=== PATIENT | male | born 1985 | race Caucasian/White ===

== ENCOUNTER 2018-12-20 08:51 | Emergency (ER) | payer OTHER ==
[~2018-12-20] VITALS: Ht 195.6 cm; Wt 122.0 kg
[2018-12-20] MEDS ORDERED: [UNRECOGNIZED DRUG - REMARK] (09:04)
--- NOTE | 2018-12-20 10:10 | REP ---
SCROTAL ULTRASOUND: Real-time sonographic evaluation of the scrotum and contents were performed. The testicles are normal in size in echotexture, right testicle measuring 4.8 x 2.3 x 3.2 cm and left testicle 5.3 x 2.4 x 3.4 cm. There is no testicular mass or torsion. There is a cyst in the head of the right epididymis measuring 5 mm in diameter and a cyst in the head of the left epididymis 2 mm in diameter. No significant hydrocele or fluid collection is seen. There are a few tiny scattered calcifications in the testicles. There is a small left varicocele. IMPRESSION: No testicular mass or torsion. Small cyst in each epididymis. Small left varicocele. Electronically Signed by Papo Crouch MD 12/23/2018 10:57 A
[2018-12-20] MEDS ORDERED: IBUP1TAB7 PO (10:17)
[2018-12-20] MEDS ORDERED: ACET30TAB PO (10:17)
[2018-12-20 10:25] VITALS: BP 119/68
--- NOTE | 2018-12-23 13:59 | ED PDOC ---
Post-Departure Follow-Up ft scott fp faxed formal report of scrotal us for Santos Conrad MD Dec 23, 2018 13:59
== END 2018-12-20 10:28 | disposition home or self-care (01) ==
LOC: M ED 08:51
DX: I86.1 Scrotal varices (principal); N50.3 Cyst of epididymis

== ENCOUNTER → 2021-08-05 | Outpatient (CLI) | payer OTHER ==
[~2021-08-05] MED LIST: ACET-716 PO; IBUP1TAB7 PO; [UNRECOGNIZED DRUG - REMARK]
--- NOTE | 2021-08-11 12:05 | REP ---
INDICATION: IMPACT INJURY BASE OF LUNG FINGER. COMPARISON: Radiographs 07/13/2021, MRI 06/14/2021. TECHNIQUE: Axial CT right hand with sagittal and coronal reconstruction images. FINDINGS: There is nondisplaced healing fracture at the base of the 3rd metacarpal. This extends into the joint with the adjacent capitate. There is a large dorsal spur of the distal capitate bone. There is no other evidence of acute fracture, dislocation or intrinsic bone disease. The soft tissue structures of the hand are grossly unremarkable. IMPRESSION: There is nondisplaced healing fracture at the base of the 3rd metacarpal. This extends into the joint with the adjacent capitate. <Electronically signed by Papo Crouch > 08/11/21 1205
== END ==
LOC: M PLAIMG 15:26
PROVIDERS: ATTEND Orthopaedic Surgery
DX: S62.342A Nondisplaced fracture of base of third metacarpal bone, right hand, initial encounter for closed fracture (principal); M79.641 Pain in right hand; Z86.718 Personal history of other venous thrombosis and embolism; Z86.59 Personal history of other mental and behavioral disorders; Y92.9 Unspecified place or not applicable; Y93.9 Activity, unspecified; Y99.9 Unspecified external cause status

== ENCOUNTER → 2025-09-18 | Outpatient (CLI) | payer OTHER | LOC: M RAD 07:32 | PROVIDERS: ATTEND Internal Medicine Gastroenterology | DX: R94.5 Abnormal results of liver function studies (principal) ==